=== PATIENT | female | born 1995 | race Two or more races ===

== ENCOUNTER 2024-12-26 14:46 | Emergency (ER) | payer BC, MEDICAID, SELFPAY ==
[2024-12-26 14:56] VITALS: BP 141/87; PULSE 84; RESP 18; TEMP 36.7; O2SAT 97; BMI 62.1
--- NOTE | 2024-12-26 15:02 | XR_ITS ---
Examination: CT abdomen and pelvis without contrast. Coronal 3-D reconstructions. Sagittal 2-D reconstructions. Date and time of exam:December 26, 2024, 1614 hours INDICATIONS: Epigastric pain nausea vomiting beginning 4 days ago CTDI: vol (mGy): 26.8 DLP: (mGycm): 1652 Technique: Axial images of the abdomen have been obtained, 3 mm slice thickness Intravenous contrast material has not been administered. Low dose protocols were performed. One or more of the following dose reduction techniques were used; automated exposure control, adjustment of the mA and/or KV according to patient size, use of iterative reconstruction technique. Findings: No focal liver or splenic lesions Cholelithiasis, no extrahepatic biliary tract dilatation No pancreatic or adrenal mass Mild to moderate bilateral renal parenchymal scar formation, no renal or ureteral calculi, no hydronephrosis Normal appendix Anteverted uterus of satisfactory position intrauterine device Urinary bladder wall mild thickening IMPRESSION: Cholelithiasis, negative for cholecystitis No extrahepatic biliary tract dilatation Mild to moderate bilateral renal parenchymal scar formation, no hydronephrosis Normal appendix Mild cystitis pattern
--- NOTE | 2024-12-26 15:03 | PD.EDRME ---
Rapid Medical Screening Exam RME Arrival date/time: 12/26/24 14:46 This is a case of 29-year-old female who came into the emergency room due to bilateral flank pain for 1 week and abdominal pain mostly on the epigastric area for 4 days associated with nausea vomiting worsening symptoms this patient decided to start consult here in the emergency ROOM Chief Complaint: Abdominal Pain Time Seen by Provider: 12/26/24 15:02 Vital signs: Vital Signs Temperature 98.0 F 12/26/24 14:56 Pulse Rate 84 12/26/24 14:56 Respiratory Rate 18 12/26/24 14:56 Blood Pressure 141/87 H 12/26/24 14:56 Pulse Oximetry (%) 97 12/26/24 14:56
[2024-12-26 15:15] LABS: Basophils % (Auto) 0 % (0-2.5); Eosinophils # (Auto) 0.2 Thou/mm3 (0.0-0.5); Eosinophils % (Auto) 2 % (0-10); Hematocrit 36.6 % (36.0-46.0); Hemoglobin 12.5 g/dL (12.0-16.0); Immature Granulocytes % (Auto) 0 % (0-0); Immature Granulocytes Auto 0.03 Thou/mm3 (0.00-0.00); Lymphocytes # (Auto) 2.3 Thou/mm3 (1.0-4.8); Lymphocytes % (Auto) 23 % (10-50); Mean Corpuscular HGB Conc 34.2 g/dl (31.0-37.0); Mean Corpuscular Hemoglobin 29.6 pg (25.0-35.0); Mean Corpuscular Volume 87 fL (80-100); Monocytes # (Auto) 0.8 Thou/mm3 (0.0-0.8); Monocytes % (Auto) 8 % (0-12); Neutrophils # (Auto) 6.6 Thou/mm3 (1.8-7.7); Neutrophils % (Auto) 67 % (37-80); Nucleated Red Blood Cell % 0 /100 WBC (0); Platelet Count 277 Thou/mm3 (140-440); RDW Standard Deviation 43.2 fL (36.4-46.3); Red Blood Count 4.22 Miln/mm3 (4.00-5.20); White Blood Count 9.9 Thou/mm3 (3.6-11.0)
[2024-12-26 15:36] LABS: Alanine Aminotransferase 46 U/L (10-49); Albumin/Globulin Ratio 1.4 (1.2-2.2); Alkaline Phosphatase 82 U/L (46-116); Anion Gap 7 (7-16); Aspartate Amino Transferase 28 U/L (0-34); BUN/Creatinine Ratio 9 Ratio (12-20); Bilirubin,Total 0.3 mg/dL (0.3-1.2); Blood Urea Nitrogen 8 mg/dL (9-23); Calcium 8.8 mg/dL (8.3-10.6); Calcium (Corrected) 8.8 mg/dL (8.5-10.1); Carbon Dioxide 25.6 mMol/L (20.0-31.0); Chloride 108 mMol/L (98-107); Creatinine (Component) 0.9 mg/dL (0.6-1.3); Estimated Creatinine Clearance 155.9 mL/min (>60); Globulin 2.9 gm/dL (2.3-3.5); Glucose 102 mg/dL (74-106); Lipase 30 U/L (12-53); Osmolality,Calculated 279 (275-295); Potassium 3.9 mMol/L (3.4-5.1); Sodium 141 mMol/L (136-145); Total Protein 6.9 gm/dL (5.7-8.2); eGFR > 60 See Note
[2024-12-26 15:48] LABS: Collection Type, Urine Clean Catch
[2024-12-26 16:05] LABS: Bacteria,Urine 2+; Bilirubin,Urine Negative (Negative); Blood,Urine Negative (Negative); Color,Urine Lt-Yellow (Lt Yel-Yel); Glucose, Urine Negative (Negative); Ketones,Urine Negative (Negative); Leukocyte Esterase,Urine Negative (Negative); Nitrite,Urine Negative (Negative); PH,Urine 6.5 (5.0-7.0); Protein,Urine Negative (Neg - Trace); RBC,Urine 4 /hpf (0-3); Specific Gravity,Urine 1.024 (1.001-1.035); Squamous Epithelial Cell,Urine 7 /hpf (0-5); Urobilinogen,Urine Negative mg/dL (0.0-1.0); WBC,Urine 1 /hpf (0-5)
[2024-12-26 16:08] LABS: HCG Qualitative,Urine Negative
[2024-12-26 16:12] LABS: Clarity,Urine Hazy (Clear/Hazy)
[2024-12-26 20:14] VITALS: BP 160/84; PULSE 67; RESP 18; TEMP 36.7; O2SAT 100
--- NOTE | 2024-12-26 21:03 | PD.EDABDPN ---
ED Abdominal Pain RME/HPI General Chief Complaint: Abdominal Pain Stated complaint: mid abd. pain rad. through back, n/v x 4d Time seen by provider: 12/26/24 15:02 Arrival date/time: 12/26/24 14:46 29-year-old female presents to the ED with a 4-day history of epigastric abdominal pain that radiates to her mid back. She has had no fever or chills, nausea, vomiting, diarrhea, dysuria or frequency. She denies any flank pain. She has a history of GERD for which she takes omeprazole but states it is not helping. She takes her omeprazole on a daily basis. She denies taking any Pepcid or Maalox for her symptoms. Her pain is not associated with food. RME / HPI RME / HPI narrative: 12/26/24 14:46 This is a case of 29-year-old female who came into the emergency room due to bilateral flank pain for 1 week and abdominal pain mostly on the epigastric area for 4 days associated with nausea vomiting worsening symptoms this patient decided to start consult here in the emergency ROOM Related Data Home Medications ?Medication ?Instructions ?Recorded ?Confirmed aspirin 81 mg tablet,delayed 81 mg PO QDAY 01/04/24 04/21/24 release vit no.95-ferrous 1 tab PO QDAY 01/04/24 04/21/24 fumarate 28 mg-folic acid 800 mcg tablet () nifedipine 20 mg capsule 30 mg PO QDAY 03/29/24 04/21/24 omeprazole 40 mg capsule,delayed 40 mg PO QDAY 04/21/24 04/21/24 release Allergies Allergy/AdvReac Type Severity Reaction Status Date / Time propoxyphene Allergy Severe SOB Verified 12/26/24 14:49 tramadol Allergy Severe Difficulty Verified 12/26/24 14:49 Breathing codeine AdvReac Severe HEART Verified 12/26/24 14:49 RACING Review of Systems Review of Systems Systems Reviewed: All systems reviewed, normal except as documented Past Medical History Past Medical History NEUROLOGIC: Positive Neurological Disorders and Brain Tumor (13 yrs old); Negative Seizures CARDIAC: Negative Cardiac Disorders or Congestive Heart Failure RESPIRATORY: Positive Asthma (inhaler); Negative Chronic Obstructive Pulmonary Disease (COPD) GASTROINTESTINAL: Positive Gastrointestinal Disorders, Gall Bladder Disease and Obesity GENITOURINARY: Positive Renal Disease; Negative Genitourinary Disorders REPRODUCTIVE: Positive Previous Pregnancies MUSCULOSKELETAL: Negative Musculoskeletal Disorders ENT: Positive Cataracts ENDOCRINE: Positive Diabetes Mellitus Type 2 (mom); Negative Endocrine Disorders or Diabetes Mellitus Type 1 HEMATOLOGIC: Negative Blood Disorders PSYCHO/SOCIAL: Positive Depression and Anxiety OTHER HISTORY: Positive Chicken Pox; Negative Autoimmune Disease, Blood Transfusions, Blood Transfusion Reaction, Anesthesia Reactions, MRSA or Cancer Family History FAMILY HISTORY: Positive Family Respiratory Disorders, Family Cardiac Disorders, Family Cancer (mom) and Family Surgery; Negative Family Psychiatric Problems, Family Gastrointestinal Problems or Family Anesthesia Reaction Surgical History SURGICAL: Positive Section; Negative Cardiac Surgery, Endocrine Surgery, Ear Surgery, Nephrectomy, Joint Replacement or Neurologic Surgery Social History SMOKING STATUS: Never smoker ED Exam Narrative Physical exam: Alert and oriented, very pleasant 29-year-old female, mild acute pain distress. Blood pressure 160/84, pulse 67, respirations 18 and nonlabored, temp 98.0, O2 sat 100% on room air. Lungs are clear, cardiovascular regular rate and rhythm. Bowel sounds hypoactive, abdomen is soft with mild tenderness to the left upper quadrant and right upper quadrant with moderate tenderness to the epigastric area. No rebound or guarding. Course Course Course Narrative: Vital signs blood pressure 141/87, pulse 84, respirations 18 nonlabored, temp 98.0, O2 sat 97% on room air. CBC reveals a normal white count, normal H&H, normal platelets and normal ANC. Chemistry panel reveals normal sodium and potassium with minimally elevated chloride at 108, normal CO2 and gap, normal BUN and creatinine, normal glucose at 102. Normal LFTs, and normal lipase. Urinalysis reveals hazy light yellow urine with a specific gravity of 1.024 with negative nitrites, negative leukocyte esterase, 4 RBCs, 1 WBC, 7 epithelial cells and 2+ bacteria. Urine hCG is negative. CT of the abdomen and pelvis without contrast (ordered in RME) reveals: IMPRESSION: Cholelithiasis, negative for cholecystitis. No extrahepatic biliary tract dilatation. Mild to moderate bilateral renal parenchymal scar formation, no hydronephrosis. Normal appendix. Mild cystitis pattern. Ultrasound of the abdomen reveals: FINDINGS: Gallbladder not visualized. Common bile duct 0.65 cm no stones. Pancreatic head 3.0 cm. Liver 16.5 cm no liver lesions. Normal hepatopedal portal venous and Patent IVC. IMPRESSION: Common bile duct 0.65 cm, no stones. Patient was given Toradol 30 mg IM. Quality Measures none Orders Category Date Time Status CT abdomen pelvis wo con Stat Exams 12/26/24 15:02 Completed US abdomen limited Stat Exams 12/26/24 21:12 Completed CBC Stat Lab 12/26/24 15:06 Completed Comprehensive Metabolic Panel Stat Lab 12/26/24 15:06 Completed HCG Qualitative,Urine Stat Lab 12/26/24 15:38 Completed Lipase Stat Lab 12/26/24 15:06 Completed Urinalysis Stat Lab 12/26/24 15:38 Completed Ketorolac Inj [Toradol Inj] Med 12/26/24 21:12 Discontinued 30 mg IM X1 ONE Lidocaine 2% Viscous [Xylocaine 2% Viscous] Med 12/26/24 20:59 Discontinued 15 ml PO X1 ONE mg Hyd/Al Hyd/Rosette Susp [Maalox Susp] Med 12/26/24 20:59 Discontinued 30 ml PO X1 ONE Vital Signs Vital signs: Vital Signs Temperature 98.0 F 12/26/24 14:56 Pulse Rate 84 12/26/24 14:56 Respiratory Rate 18 12/26/24 14:56 Blood Pressure 141/87 H 12/26/24 14:56 Pulse Oximetry (%) 97 12/26/24 14:56 Abdominal Pain MDM MDM Narrative MDM Narrative:: 29-year-old female, with a past medical history of cholelithiasis, previous partial cholecystectomy (stating the left part of her gallbladder due to severe inflammation), presents to the ED with a 4-day history of epigastric abdominal pain that radiates to her mid back. She has had no fever or chills, nausea, vomiting, diarrhea, dysuria or frequency. She denies any flank pain. She has a history of GERD for which she takes omeprazole but states it is not helping. She takes her omeprazole on a daily basis. She denies taking any Pepcid or Maalox for her symptoms. Her pain is not associated with food. Alert and oriented, very pleasant 29-year-old female, mild acute pain distress. Blood pressure 160/84, pulse 67, respirations 18 and nonlabored, temp 98.0, O2 sat 100% on room air. Lungs are clear, cardiovascular regular rate and rhythm. Bowel sounds hypoactive, abdomen is soft with mild tenderness to the left upper quadrant and right upper quadrant with moderate tenderness to the epigastric area. No rebound or guarding. CBC reveals a normal white count, normal H&H, normal platelets and normal ANC. Chemistry panel reveals normal sodium and potassium with minimally elevated chloride at 108, normal CO2 and gap, normal BUN and creatinine, normal glucose at 102. Normal LFTs, and normal lipase. Urinalysis reveals hazy light yellow urine with a specific gravity of 1.024 with negative nitrites, negative leukocyte esterase, 4 RBCs, 1 WBC, 7 epithelial cells and 2+ bacteria. Urine hCG is negative. CT of the abdomen and pelvis without contrast (ordered in [facility]) reveals: IMPRESSION: Cholelithiasis, negative for cholecystitis. No extrahepatic biliary tract dilatation. Mild to moderate bilateral renal parenchymal scar formation, no hydronephrosis. Normal appendix. Mild cystitis pattern. Ultrasound of the abdomen reveals: FINDINGS: Gallbladder not visualized. Common bile duct 0.65 cm no stones. Pancreatic head 3.0 cm. Liver 16.5 cm no liver lesions. Normal hepatopedal portal venous and Patent IVC. IMPRESSION: Common bile duct 0.65 cm, no stones. Patient was given Toradol 30 mg IM. Discrepancy of imaging studies with CT of the abdomen and pelvis showing cholelithiasis, negative for cholecystitis however on ultrasound of the abdomen reveals no stones. Attempted contact with radiologist, Dr Norton for clarification of radiological findings, multiple times without success. Contacted [employer] for him to text Dr Norton to return my call. By the end of this providers shift, Dr Norton had not returned my call. Patient eloped from the lobby while waiting for clarification. Patient data External records reviewed:: [facility] previous records Clinical information provided by:: patient Social determinants that could affect healthcare access:: none Patient has the following chronic illnesses:: GERD, previous partial cholecystectomy due to cholelithiasis. How is presenting disease/condition affected by chronic disease/condition?: exacerbated by Evaluation data The following diagnostics were reviewed and interpreted by me:: lab results and radiology exam(s) Lab and/or radiology exams considered but not ordered:: N/A Interpretation Summary: CBC reveals a normal white count, normal H&H, normal platelets and normal ANC. Chemistry panel reveals normal sodium and potassium with minimally elevated chloride at 108, normal CO2 and gap, normal BUN and creatinine, normal glucose at 102. Normal LFTs, and normal lipase. Urinalysis reveals hazy light yellow urine with a specific gravity of 1.024 with negative nitrites, negative leukocyte esterase, 4 RBCs, 1 WBC, 7 epithelial cells and 2+ bacteria. Urine hCG is negative. CT of the abdomen and pelvis without contrast (ordered in [facility]) reveals: IMPRESSION: Cholelithiasis, negative for cholecystitis. No extrahepatic biliary tract dilatation. Mild to moderate bilateral renal parenchymal scar formation, no hydronephrosis. Normal appendix. Mild cystitis pattern. Ultrasound of the abdomen reveals: FINDINGS: Gallbladder not visualized. Common bile duct 0.65 cm no stones. Pancreatic head 3.0 cm. Liver 16.5 cm no liver lesions. Normal hepatopedal portal venous and Patent IVC. IMPRESSION: Common bile duct 0.65 cm, no stones. Medications / Prescriptions Medications or Prescriptions considered but not ordered:: N/A Medication administrations:: Medication Administration History Discontinued Medications Al Hydrox/Mg Hydrox/Simethicone (Mg Hyd/Al Hyd/Rosette (Maalox Reg) Susp 30 Ml Udc) 30 ml PO X1 ONE Stop: 12/26/24 21:00 Last Admin: 12/26/24 21:38 Dose: Not Given Documented By: MARCO Non-Admin Reason: Cancelled by Provider Ketorolac Tromethamine (Ketorolac Inj 60 Mg/2 Ml Vial) 30 mg IM X1 ONE Stop: 12/26/24 21:13 Last Admin: 12/26/24 21:36 Dose: 30 mg Documented By: MARCO Lidocaine HCl (Lidocaine Viscous 2% 15 Ml Udc) 15 ml PO X1 ONE Stop: 12/26/24 21:00 Last Admin: 12/26/24 21:38 Dose: Not Given Documented By: MARCO Non-Admin Reason: Cancelled by Provider Toradol 30 mg IM. Consultations Consultation(s) initiated? (list below): Yes Consultation #1 (Physician, Specialty, Details): Discussed case with Dr. Ng who indicates possible surgical consult if ultrasound shows cholelithiasis, however due to discrepancy of radiological studies and patient elopement, no surgical consult was obtained. Diagnosis Differential diagnosis abdominal pain: abdominal pain, calculus of kidney, gastroenteritis, pancreatitis and other (Cholelithiasis, cholecystitis) Most likely diagnosis given after review of the tests above:: Cholelithiasis Admission Indicated Admission indicated?: not indicated Explain why admission is indicated or not indicated:: Elopement Admission Request Was there a request for admission?: No Admission Attestation Admission request attestation: Elopement Disposition Plan Disposition Plan: other (specify) (Elopement) Discharge Attestation Discharge Attestation: Elopement Discharge Plan Plan Patient Disposition: Elopement Prescriptions/Referrals Prescriptions/Med Rec: No Action aspirin 81 mg tablet,delayed release (DR/EC) 81 mg PO QDAY Patient Comments: TAKE 1 TABLET BY MOUTH EVERY DAY FOR 90 DAYS PNV cmb#95-ferrous fumarate-FA [] 28 mg iron- 800 mcg tablet 1 tab PO QDAY Patient Comments: TAKE 1 TABLET BY MOUTH EVERY DAY nifedipine [Procardia] 20 mg Capsule 30 mg PO QDAY omeprazole 40 mg capsule,delayed release(DR/EC) 40 mg PO QDAY Referrals: Rod Bailey PA-C [Primary Care Provider] - In 1 week Problem List Clinical Impression: Cholelithiasis Patient/Caregiver Discharge Instructions Additional Instructions: Elopement Print Language: Malay CASSIE/JONNY Supervising Physician CASSIE/JONNY Supervising Physician: Dr. Ng
--- NOTE | 2024-12-26 21:12 | XR_ITS ---
Examination: Abdomen sonogram, Limited Date and time of exam: December 26, 2024, 2141 hours INDICATIONS: Nausea vomiting several years including tonight TECHNIQUE: Garcia scale sonographic images abdomen FINDINGS: Gallbladder not visualized Common bile duct 0.65 cm no stones Pancreatic head 3.0 cm Liver 16.5 cm no liver lesions Normal hepatopedal portal venous and Patent IVC IMPRESSION: Common bile duct 0.65 cm no stones
[2024-12-26] MEDS: KETOROLAC INJ 60 MG/2 ML VIAL 30 MG IM (21:36)
--- NOTE | 2024-12-27 00:30 | PC.NURSE ---
CALLED PATIENT IN THE LOBBY AND OUTSIDE, NO ANSWER RECEIVED FROM PATIENT.
--- NOTE | 2024-12-27 00:44 | PC.NURSE ---
CALLED PATIENT IN THE LOBBY AND OUTSIDE, NO ANSWER RECEIVED FROM PATIENT.
--- NOTE | 2024-12-27 00:53 | PC.NURSE ---
CALLED PATIENT IN THE LOBBY AND OUTSIDE, NO ANSWER RECEIVED FROM PATIENT.
== END 2024-12-27 00:53 | disposition left against medical advice (07) ==
LOC: SERX 15:24
PROVIDERS: Nurse Practitioner Family; Emergency Provider Emergency Medicine; PCP Physician Assistant
DX: K80.20 Calculus of gallbladder without cholecystitis without obstruction (principal); N28.89 Other specified disorders of kidney and ureter
CPT/HCPCS: 36415; 74176; 76705; 80053; 81001; 81025; 83690; 85025; 96372; 99281; J1885

== ENCOUNTER 2025-03-18 17:23 | Emergency (ER) | payer BC, SELFPAY ==
[2025-03-18 17:31] VITALS: BP 157/89; PULSE 76; RESP 16; TEMP 36.6; O2SAT 99
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
[2025-03-18 20:08] LABS: HCG Qualitative,Urine Negative
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
[2025-03-18] MEDS: KETOROLAC INJ 30 MG/ML VIAL IM (23:03)
--- NOTE | 2025-03-18 23:19 | PC.NURSE ---
AISHA LOG NUMBER [id number].
[2025-03-18 23:27] VITALS: BP 145/84; PULSE 62; RESP 18; TEMP 36.7; O2SAT 99
[2025-03-18 23:28] VITALS: BMI 57.4
== END 2025-03-18 23:35 | disposition home or self-care (01) ==
PROVIDERS: Physician Assistant; Emergency Provider Family Medicine
DX: S13.4XXA Sprain of ligaments of cervical spine, initial encounter (principal); M54.50 Low back pain, unspecified; R51.9 Headache, unspecified; V43.52XA Car driver injured in collision with other type car in traffic accident, initial encounter; Y92.524 Gas station as the place of occurrence of the external cause
CPT/HCPCS: 70450; 72100; 72125; 81025; 96372; 99284; J1885; A9270

== ENCOUNTER 2025-06-19 19:56 | Emergency (ER) | payer BC, SELFPAY ==
[2025-06-19 20:22] VITALS: BP 130/77; PULSE 120; RESP 20; TEMP 38.8; O2SAT 95; BMI 62.8
--- NOTE | 2025-06-19 20:35 | XR_ITS ---
EXAMINATION: PA lateral chest 2 views TECHNIQUE: Upright PA lateral chest 2 views Date and time: June 19, 2025, 2035 hours INDICATIONS: Shortness of breath beginning 4 days ago. FINDINGS: Normal heart size No pneumonia or pulmonary edema Intact osseous structures IMPRESSION: No active disease
[2025-06-19] MEDS: ALBUTEROL/IPRATROPIUM (Duoneb) RT SOL 3 ML NEBU INH (20:45)
[2025-06-19 20:50] VITALS: PULSE 110; RESP 22; O2SAT 99
[2025-06-19 21:24] LABS: Basophils # (Auto) 0.0 Thou/mm3 (0.0-0.2); Basophils % (Auto) 0 % (0-2.5); Eosinophils # (Auto) 0.1 Thou/mm3 (0.0-0.5); Eosinophils % (Auto) 1 % (0-10); Hematocrit 37.2 % (36.0-46.0); Hemoglobin 12.3 g/dL (12.0-16.0); Immature Granulocytes Auto 0.02 Thou/mm3 (0.00-0.00); Lymphocytes # (Auto) 0.8 Thou/mm3 (1.0-4.8); Lymphocytes % (Auto) 9 % (10-50); Mean Corpuscular HGB Conc 33.1 g/dl (31.0-37.0); Mean Corpuscular Hemoglobin 29.3 pg (25.0-35.0); Mean Corpuscular Volume 89 fL (80-100); Monocytes # (Auto) 1.0 Thou/mm3 (0.0-0.8); Monocytes % (Auto) 11 % (0-12); Neutrophils # (Auto) 6.8 Thou/mm3 (1.8-7.7); Neutrophils % (Auto) 78 % (37-80); Nucleated Red Blood Cell # 0.00 Thou/mm3 (0.00-0.00); Nucleated Red Blood Cell % 0 /100 WBC (0); Platelet Count 221 Thou/mm3 (140-440); RDW Standard Deviation 41.5 fL (36.4-46.3); Red Blood Count 4.20 Miln/mm3 (4.00-5.20); White Blood Count 8.7 Thou/mm3 (3.6-11.0)
[2025-06-19 21:43] LABS: HCG,Qualitative Serum Negative
[2025-06-19 21:53] LABS: Alanine Aminotransferase 52 U/L (10-49); Albumin, Serum 4.2 gm/dL (3.5-5.0); Albumin/Globulin Ratio 1.3 (1.2-2.2); Alkaline Phosphatase 96 U/L (46-116); Anion Gap 10 (7-16); Aspartate Amino Transferase 34 U/L (0-34); BUN/Creatinine Ratio 10 Ratio (12-20); Bilirubin,Total 0.3 mg/dL (0.3-1.2); Blood Urea Nitrogen 8 mg/dL (9-23); Calcium 9.0 mg/dL (8.3-10.6); Calcium (Corrected) 9.0 mg/dL (8.5-10.1); Carbon Dioxide 25.0 mMol/L (20.0-31.0); Chloride 104 mMol/L (98-107); Creatinine (Component) 0.8 mg/dL (0.6-1.3); Estimated Creatinine Clearance 174.9 mL/min (>60); Globulin 3.2 gm/dL (2.3-3.5); Glucose 127 mg/dL (74-106); Osmolality,Calculated 277 (275-295); Potassium 3.8 mMol/L (3.4-5.1); Sodium 139 mMol/L (136-145); Total Protein 7.4 gm/dL (5.7-8.2); eGFR > 60 See Note
--- NOTE | 2025-06-19 22:05 | PD.EDURI ---
Upper Respiratory Inf. RME/HPI General Chief Complaint: Flu Like Symptoms Stated Complaint: DIFFICULTY BREATHING, COUGH Time Seen by Provider: 06/19/25 19:58 Arrival date/time: 06/19/25 19:56 This is a case of 30-year-old female with history of asthma came in in the emergency room due to cough for 4 weeks associated with nasal congestion which is relieved by her inhaler due to worsening of the symptoms now with shortness of breath and wheezing thus patient decided to sought consult here in the emergency room denies any chest pain but with subjective fever Limitations: no limitations Related Data Home Medications ?Medication ?Instructions ?Recorded ?Confirmed aspirin 81 mg tablet,delayed 81 mg PO QDAY 01/04/24 04/21/24 release vit no.95-ferrous 1 tab PO QDAY 01/04/24 04/21/24 fumarate 28 mg-folic acid 800 mcg tablet () nifedipine 20 mg capsule 30 mg PO QDAY 03/29/24 04/21/24 omeprazole 40 mg capsule,delayed 40 mg PO QDAY 04/21/24 04/21/24 release Previous Rx's ?Medication ?Instructions ?Recorded ibuprofen 800 mg tablet 800 mg PO Q8H PRN pain #30 tabs 03/18/25 methocarbamol 500 mg tablet 500 mg PO Q8H #20 tabs 03/18/25 albuterol sulfate 90 mcg/actuation 1 puff inhalation Q4H PRN 06/19/25 aerosol inhaler (Ventolin HFA) shortness of breath or wheezing #8.5 grams azithromycin 250 mg tablet 250 mg PO QDAY 6 days #6 tabs 06/19/25 benzonatate 200 mg capsule 200 mg PO BID PRN cough #20 caps 06/19/25 prednisone 20 mg tablet 40 mg (2 x 20 mg) PO QDAY 5 days 06/19/25 #10 tabs Allergies Allergy/AdvReac Type Severity Reaction Status Date / Time propoxyphene Allergy Severe SOB Verified 03/18/25 17:26 tramadol Allergy Severe Difficulty Verified 03/18/25 17:26 Breathing codeine AdvReac Severe HEART Verified 03/18/25 17:26 RACING Review of Systems Review of Systems Systems Reviewed: All systems reviewed, normal except as documented Constitutional Constitutional: Reports system reviewed and no additional complaints, except as documented and Reports as per HPI ENT Ears, Nose, Mouth, and Throat: Reports system reviewed and no additional complaints, except as documented and Reports as per HPI Cardiovascular Cardiovascular: Reports system reviewed and no additional complaints, except as documented and Reports as per HPI Respiratory Respiratory: Reports system reviewed and no additional complaints, except as documented and Reports as per HPI Gastrointestinal Gastrointestinal: Reports system reviewed and no additional complaints, except as documented and Reports as per HPI Musculoskeletal Musculoskeletal: Reports system reviewed and no additional complaints, except as documented and Reports as per HPI Neurologic Neurologic: Reports system reviewed and no additional complaints, except as documented and Reports as per HPI Past Medical History Past Medical History NEUROLOGIC: Positive Neurological Disorders and Brain Tumor (13 yrs old); Negative Seizures CARDIAC: Negative Cardiac Disorders or Congestive Heart Failure RESPIRATORY: Positive Asthma (inhaler); Negative Chronic Obstructive Pulmonary Disease (COPD) GASTROINTESTINAL: Positive Gastrointestinal Disorders, Gall Bladder Disease and Obesity GENITOURINARY: Positive Renal Disease; Negative Genitourinary Disorders REPRODUCTIVE: Positive Previous Pregnancies MUSCULOSKELETAL: Negative Musculoskeletal Disorders ENT: Positive Cataracts ENDOCRINE: Positive Diabetes Mellitus Type 2 (mom); Negative Endocrine Disorders or Diabetes Mellitus Type 1 HEMATOLOGIC: Negative Blood Disorders PSYCHO/SOCIAL: Positive Depression and Anxiety OTHER HISTORY: Positive Chicken Pox; Negative Autoimmune Disease, Blood Transfusions, Blood Transfusion Reaction, Anesthesia Reactions, MRSA or Cancer Family History FAMILY HISTORY: Positive Family Respiratory Disorders, Family Cardiac Disorders, Family Cancer (mom) and Family Surgery; Negative Family Psychiatric Problems, Family Gastrointestinal Problems or Family Anesthesia Reaction Surgical History SURGICAL: Positive Section; Negative Cardiac Surgery, Endocrine Surgery, Ear Surgery, Nephrectomy, Joint Replacement or Neurologic Surgery Social History SMOKING STATUS: Never smoker ED Exam General Limitations: Present no limitations General appearance: Present alert, in no apparent distress and other (Patient is awake alert oriented not in distress nontoxic looking well-hydrated well-nourished) Head Head exam: Present atraumatic, normocephalic and normal inspection Eye Eye exam: Present normal appearance, PERRL and EOMI ENT ENT exam: Present normal exam, normal oropharynx, mucous membranes moist and other (HEENT exam is normal and unremarkable) Neck Neck exam: Present normal inspection, full ROM, trachea midline and other; Absent tenderness, meningismus, lymphadenopathy or thyromegaly Chest Chest inspection: Present normal inspection and symmetric chest wall rise Respiratory Respiratory exam: Present normal lung sounds bilaterally and wheezes; Absent respiratory distress, stridor, accessory muscle use or prolonged expiratory phase Cardiovascular Cardiovascular exam: Present regular rate, normal rhythm and normal heart sounds; Absent bradycardia, tachycardia, irregular rhythm, systolic murmur or diastolic murmur Abdominal Exam Abdominal exam: Present soft and normal bowel sounds; Absent distention, tenderness, guarding, rebound, rigidity, diminished bowel sounds, hyperactive bowel sounds, hypoactive bowel sounds or organomegaly Extremities Exam Extremities exam: Present normal inspection and full ROM Back Exam Back exam: Present normal inspection and full ROM Neurological Exam Neurological exam: Present alert, oriented X3, CN II-XII intact, normal gait and reflexes normal; Absent motor sensory deficit Psychiatric Psychiatric exam: Present normal affect and normal mood Skin Skin exam: Present warm, dry, intact, normal color and other (Excellent skin turgor) Course Quality Measures none Orders Category Date Time Status Bedside COVID-19 Antigen Test NOW Care 06/19/25 20:35 Active Bedside Influenza A&B Antigen Test NOW Care 06/19/25 20:35 Completed XR chest 2V Stat Exams 06/19/25 20:35 Completed CBC Stat Lab 06/19/25 21:08 Completed CMP [Comprehensive Metabolic Panel] Stat Lab 06/19/25 21:08 Completed HCG,Qualitative Serum Stat Lab 06/19/25 21:08 Completed Albuterol/Ipratr Rt Sima [Duoneb Rt Sima] Med 06/19/25 20:35 Discontinued 3 ml INH X1 ONE MethylPREDNISolone.* [SoluMEDROL Inj] Med 06/19/25 20:35 Discontinued 125 mg IM X1 ONE Vital Signs Vital signs: Vital Signs Temperature 101.8 F H 06/19/25 20:22 Pulse Rate 120 H 06/19/25 20:22 Respiratory Rate 20 06/19/25 20:22 Blood Pressure 130/77 06/19/25 20:22 Pulse Oximetry (%) 95 06/19/25 20:22 Oxygen Delivery Method Room Air 06/19/25 20:22 Oxygen saturation is 95 to 98% in room air Upper Respiratory Infection MDM Narrative MDM Narrative:: This is a case of 30-year-old female with history of asthma came in in the emergency room due to cough for 4 weeks associated with nasal congestion which is relieved by her inhaler due to worsening of the symptoms now with shortness of breath and wheezing thus patient decided to sought consult here in the emergency room denies any chest pain but with subjective fever physical examination patient is awake alert oriented not in distress nontoxic looking well-hydrated well-nourished excellent skin turgor negative for meningeal sign HEENT exam is normal and unremarkable wheezing both lower lung field no crackles no rales no retraction no stridor heart normal rate regular rhythm no murmur abdominal exam is benign nonsurgical no guarding no rebound no rigidity no tenderness excellent skin turgor at the time of exam no signs and symptoms of sepsis dehydration or hypoxia vital signs stable patient COVID rapid strep is negative pression is positive for influenza A x-ray showed normal based on my physical examination and history patient symptoms suggestive of asthmatic bronchitis thus patient was given breathing treatment and Solu-Medrol patient blood test showed no leukocytosis no anemia kidney and liver function is normal no electrolyte imbalance patient is not at the time of exam patient symptoms is already 4 weeks thus Tamiflu was not given I decided to give patient azithromycin due to the length of the sx patient will follow-up with PCP in 2 days for reevaluation and to be referred to designer and patternmaker for asthma exacerbations patient agreed with the treatment plan and discharge Patient was discharged with comfortable condition walking with stable gait. Patient verbalized no further complains explained diagnosis and answered patient question. Patient is comfortable with the proposed management plan including the need to follow up with his/her primary care physician and any specialist if applicable Discussed patient for any urgent condition or worsening sx, He/She needed to go to emergency room immediately or call 911. Patient acknowledge the responsibility to follow up as instructed and to monitor her/his symptoms. For any persistence of the symptoms for more than 3-5 days return precaution advised. Discussed the result of the test and was given printed discharge instruction Patient data External records reviewed:: [facility] previous records Clinical information provided by:: none Social determinants that could affect healthcare access:: none Patient has the following chronic illnesses:: None How is presenting disease/condition affected by chronic disease/condition?: no chronic disease Evaluation data The following diagnostics were reviewed and interpreted by me:: lab results and radiology exam(s) Lab and/or radiology exams considered but not ordered:: Reviewed Interpretation Summary: Reviewed Medications / Prescriptions Medications or Prescriptions considered but not ordered:: Given Medication administrations:: Medication Administration History Discontinued Medications Albuterol/Ipratropium (Albuterol/Ipratropium (Duoneb) Rt Sima 3 Ml Nebu) 3 ml INH X1 ONE Stop: 06/19/25 20:36 Last Admin: 06/19/25 20:45 Dose: 3 ml Documented By: NOEMI Methylprednisolone Sodium Succinate (Methylprednisolone Sod Succ 62.5 Mg/Ml 2ml Vial) 125 mg IM X1 ONE Stop: 06/19/25 20:36 Given Consultations Consultation(s) initiated? (list below): No Diagnosis Upper Respiratory Differential Diagnosis: upper respiratory infection, otitis media, sinusitis, viral infection, bronchitis, influenza and pharyngitis Most likely diagnosis given after review of the tests above:: Influenza A asthmatic bronchitis Admission Indicated Admission indicated?: not indicated Explain why admission is indicated or not indicated:: Not indicated Admission Request Was there a request for admission?: No Admission Attestation Admission request attestation: Not indicated Disposition Plan Disposition Plan: Discharge Discharge Attestation Discharge Attestation: The patient and all family members were given an opportunity to ask questions and understood the discharge instructions. Discharge instructions specifically effects, indications for sooner follow up or return to the emergency department, and the expected course of current diagnosis. Patient condition: Stable Discharge Plan Plan Patient Disposition: HOME (Self Care) Patient condition on transfer: Stable Prescriptions/Referrals Prescriptions/Med Rec: New azithromycin 250 mg tablet 250 mg PO QDAY 6 Days Qty: 6 0RF Rx Instructions: start on day 2 of therapy benzonatate 200 mg capsule 200 mg PO BID PRN (Reason: cough) Qty: 20 0RF prednisone 20 mg tablet 40 mg PO QDAY 5 Days Qty: 10 0RF Rx Instructions: satrt tomorrowe albuterol sulfate [Ventolin HFA] 90 mcg/actuation HFA aerosol inhaler 1 puff inhalation Q4H PRN (Reason: shortness of breath or wheezing) Qty: 8.5 0RF Rx Instructions: Please give No Action aspirin 81 mg tablet,delayed release (DR/EC) 81 mg PO QDAY Patient Comments: TAKE 1 TABLET BY MOUTH EVERY DAY FOR 90 DAYS PNV no.95-ferrous fumarate-FA [] 28 mg iron- 800 mcg tablet 1 tab PO QDAY Patient Comments: TAKE 1 TABLET BY MOUTH EVERY DAY ibuprofen 800 mg tablet 800 mg PO Q8H PRN (Reason: pain) Qty: 30 0RF methocarbamol 500 mg tablet 500 mg PO Q8H Qty: 20 0RF nifedipine [Procardia] 20 mg Capsule 30 mg PO QDAY omeprazole 40 mg capsule,delayed release(DR/EC) 40 mg PO QDAY Referrals: No Primary/Family,Physician [Primary Care Provider] - In 1 week Problem List Clinical Impression: AB (asthmatic bronchitis), Influenza A Patient/Caregiver Discharge Instructions Education Materials: Acute Bronchitis, ED Influenza (Adult), Asthma Additional Instructions: Follow-up with your primary care physician in 2 days for reevaluation and to be referred to designer and patternmaker for your asthma exacerbation recurrent persistent worsening symptoms or any emergent concern call 911 or go to the nearest emergency room take your medication as directed finish the course of antibiotic increase water intake keep hydrated give vitamin C daily take Tylenol or Motrin as needed for pain or fever Gatorade or Pedialyte for hydration Print Language: Tamazight Stand Alone Forms: Loly Award Info., Patient Portal Info Letter PA/MUSIC PROMOTER Supervising Physician PA/MUSIC PROMOTER Supervising Physician: Dr. Toussaint
[2025-06-19] MEDS: MethylPREDNISolone SOD SUCC 62.5 MG/ML 2ML VIAL 125 MG IM (22:15)
== END 2025-06-19 22:19 | disposition home or self-care (01) ==
PROVIDERS: Nurse Practitioner Family; Emergency Provider Emergency Medicine
DX: J10.1 Influenza due to other identified influenza virus with other respiratory manifestations (principal); J45.909 Unspecified asthma, uncomplicated
CPT/HCPCS: 36415; 71046; 80053; 84703; 85025; 87502; 87635; 94640; 96372; 99283; A9270; J2919